=== PATIENT | male | born 1960 | race Caucasian/White ===

== ENCOUNTER → 2019-05-26 17:20 | Outpatient (BNVA) | payer OTHER, SELFPAY | PROVIDERS: Visit Provider Nurse Practitioner Family | DX: S67.21XA Crushing injury of right hand, initial encounter (principal); Y99.0 Civilian activity done for income or pay; S62.604A Fracture of unspecified phalanx of right ring finger, initial encounter for closed fracture | CPT/HCPCS: 73120; 73130 ==

== ENCOUNTER 2019-07-20 13:11 | Emergency (ER) | payer SELFPAY ==
--- NOTE | 2019-07-20 13:30 | XR_ITS ---
WS: [id number] XR chest 2V* 09920 REASON FOR EXAM: cough FINDINGS: PA lateral chest shows normal heart size and mediastinal interface. The lung hill are well aerated. There is no pneumonia, pleural effusion, pulmonary edema, no masses are seen. The hilum and apices normal. No osseous abnormalities. XR/XR chest 2V* 31524 IMPRESSION: Negative chest for acute findings.
[2019-07-20 13:32] VITALS: BP 215/134; PULSE 112; RESP 16; TEMP 37.8; O2SAT 96; BMI 27.3
[2019-07-20 15:15] VITALS: BP 220/111
[2019-07-20] MEDS: cloNIDine 0.1 mg Tablet PO (15:15)
[2019-07-20] MEDS: dexamethasone 10 mg/mL INJ IM (15:16)
--- NOTE | 2019-07-20 15:30 | W.ED.GENADLT ---
HPI - General Adult General: Chief complaint: General Medical Stated complaint: coughing/sinuses Time Seen by Provider: 07/20/19 15:07 Source: patient Mode of arrival: ambulatory Limitations: no limitations History of Present Illness: HPI narrative: Patient is a 58-year-old male states has had cough and congestion for the last week. He states that his cough has been productive and he has had low-grade fevers. He denies any [place] exposure or travel. States that he gets bronchitis often. Patient is also quite hypertensive and he states he has a long history of blood pressure but is never sees a primary care doctor and does not take any meds. Denies any headache or chest pain. He denies any shortness of breath. Onset (ago): week(s) Severity: moderate Relieving factors: none Exacerbating factors: none Associated symptoms: Deny chest pain, dyspnea, headache(s), nausea, rash or vomiting Review of Systems Const: Denies: fever, chills, body aches or change in appetite Eyes: Denies: blurry vision or eye discomfort ENMT: Denies: throat pain or dental pain Card: Denies: chest pain Resp: Reports: productive cough and wheezing; Denies: shortness of breath GI: Denies: abdominal pain, nausea, vomiting or diarrhea : Denies: painful urination Musc: Denies: neck pain or back pain Skin/Breast: Denies: rash Neuro: Denies: headache Psych: Denies: depression Cornelio/Lymph: Denies: easy bruising All/Imm: Denies: hives PFS ED PFSH: Social History Smoking and tobacco status: former smoker Alcohol intake: former Current occupation: [employer] Physical Exam Const: COMMON NORMALS: no apparent distress, oriented x3 and healthy appearing HENMT: COMMON NORMALS: normocephalic and head/scalp atraumatic HEAD & SCALP: normocephalic and atraumatic Eye: COMMON NORMALS: PERRL and EOMs intact bilaterally PUPIL: Yes PERRL Neck/C-Spine: COMMON NORMALS: full ROM and supple Chest: COMMONS NORMALS: inspection of chest normal and palpation of chest normal Resp: COMMON NORMALS: normal respiratory effort, no retractions, no use of accessory muscles and clear to auscultation bilaterally AUSCULTATION: clear to auscultation bilaterally Cardio: COMMON NORMALS: regular rate, regular rhythm and no murmurs RATE: regular rate RHYTHM: regular rhythm GI: COMMON NORMALS: normal to inspection, nondistended, normoactive bowel sounds, soft to palpation, non-tender and no masses PALPATION: Yes soft Extremity: COMMON NORMALS: normal to inspection and full ROM Neuro: COMMON NORMALS: oriented x3, moves all extremities and no focal motor deficits Psych: COMMON NORMALS: mental status grossly normal, thought process normal and cooperative THOUGHT PROCESS: normal thought process Skin: COMMON NORMALS: no rashes or lesions noted and no wounds GENERAL SKIN EXAM: no rashes or lesions noted Course Vital Signs: Vital signs: Vital Signs Temperature 99.4 F 07/20/19 16:37 Pulse Rate 102 H 07/20/19 16:37 Respiratory Rate 18 07/20/19 16:37 Blood Pressure 159/93 07/20/19 16:37 Pulse Oximetry 96 07/20/19 16:37 MDM - General Adult MDM Narrative: Medical decision making narrative: Patient presents with cough congestion and fever that is been going on the weeks. He has a long history of bronchitis and this feels similar. We will treat him with Keflex given a Decadron shot here. Also recommended that he has self isolation for 1 to 2 weeks. Patient also is hypertensive and this is likely chronic in nature and will start him on HCTZ at this time. Lab Data: Labs: Lab Results 07/20/19 Range/Units 15:47 Influenza Type A A g Negative (Negative) POC Influenza B Ag Negative (Negative) Imaging Data^: CXR: Radiologist's impression: [address] [address] XRay Report Signed Patient: Blayne Goldstein Unit #: [id number] : 1960 Age/Sex: 58 / M ADM Date: 07/20/19 Loc: ER Room/Bed: Attending Dr: Ordering Provider/Ordering MD: Jose Lira MD Date of Service: 07/20/19 Procedure(s): XR chest 2V* 10668 Accession Number(s): [id number] Report Number: [id number] WS: [id number] XR chest 2V* 03722 REASON FOR EXAM: cough FINDINGS: PA lateral chest shows normal heart size and mediastinal interface. The lung hill are well aerated. There is no pneumonia, pleural effusion, pulmonary edema, no masses are seen. The hilum and apices normal. No osseous abnormalities. XR/XR chest 2V* 00591 IMPRESSION: Negative chest for acute findings. Discharge Plan Discharge Patient Disposition: Home, Self-Care Clinical Impression: Bronchitis, Hypertension Condition: Stable Prescriptions: New Keflex 500 mg capsule 500 mg PO Q6H 7 Days Qty: 28 RF: 0 hydrochlorothiazide 25 mg tablet 25 mg PO BID Qty: 60 RF: 0 Discharge Orders: Discharge Order (Routine); Ordered 07/20/19 Ordered By: Jose Lira Referrals: , [Primary Care Provider] - Discharge Diet: Advance as tolerated Discharge Activity: Resume usual activity Patient Instructions: Acute Bronchitis (ED), Hypertension (ED) Coding Level of Care Code ED Planning Management It Specialist for Chg Fwd Exam Comprehensive
[2019-07-20] MEDS: acetaminophen 500 mg Tablet 1000 MG PO (15:50)
[2019-07-20 15:51] VITALS: BP 187/99
[2019-07-20 16:08] VITALS: BP 162/93
[2019-07-20 16:22] LABS: Influenza A by IFA Negative (Negative); Influenza B by IFA Negative (Negative)
[2019-07-20 16:37] VITALS: BP 159/93; PULSE 102; RESP 18; TEMP 37.4; O2SAT 96
== END 2019-07-20 16:38 | disposition home or self-care (01) ==
LOC: ER 08-11 11:50
PROVIDERS: Emergency Provider Emergency Medicine
DX: J40 Bronchitis, not specified as acute or chronic (principal); I10 Essential (primary) hypertension; Z87.891 Personal history of nicotine dependence
CPT/HCPCS: 12345; 71046; 87804; 96372; 99281; 99283; J1100

== ENCOUNTER → 2020-06-04 13:20 | Outpatient (BNVA) | payer OTHER, SELFPAY | PROVIDERS: Visit Provider Nurse Practitioner | DX: R06.02 Shortness of breath (principal); I10 Essential (primary) hypertension; R06.00 Dyspnea, unspecified | CPT/HCPCS: 80053; 83880 ==

== ENCOUNTER → 2024-09-21 13:38 | Outpatient (BNVA) | payer OTHER, SELFPAY | PROVIDERS: PCP Family Medicine; Visit Provider Podiatrist Foot & Ankle Surgery | DX: I73.9 Peripheral vascular disease, unspecified (principal); L60.3 Nail dystrophy; G62.9 Polyneuropathy, unspecified; M25.571 Pain in right ankle and joints of right foot; M25.572 Pain in left ankle and joints of left foot; E11.42 Type 2 diabetes mellitus with diabetic polyneuropathy | CPT/HCPCS: 11721; 99204 ==

== ENCOUNTER → 2024-09-29 14:33 | Outpatient (BNVA) | payer OTHER, SELFPAY | PROVIDERS: Visit Provider Student in an Organized Health Care Education/Training Program | DX: Z12.11 Encounter for screening for malignant neoplasm of colon (principal) | CPT/HCPCS: 99204 ==

== ENCOUNTER 2024-10-18 11:10 | Day surgery (SDC) | payer OTHER, SELFPAY ==
[2024-10-18 11:25] VITALS: BP 175/90; PULSE 63; RESP 18; TEMP 36.2; O2SAT 96; BMI 27.3
--- NOTE | 2024-10-18 11:25 | W.PM.OPSUD ---
Surgery/Procedure H&P Update DATE OF PROCEDURE: October 18, 2024 DATE H&P PERFORMED: 09/29/24 H&P UPDATE INFORMATION: I have reviewed H&P completed within last 30 days, I have examined patient prior to procedure and No changes to prior documentation PLANNED PROCEDURE: Operation Date: 10/18/24 12:30 Proposed Procedures p Colonoscopy 46162 G0121, Z12.11 R12(Not Applicable) - Ron Em MD
[2024-10-18] MEDS: sodium chloride 0.9% 1,000 ML 15 ML IV (11:29)
[2024-10-18 11:41] LABS: Glucose Point of Care 185 mg/dL (70-110)
--- NOTE | 2024-10-18 11:42 | ANES.PREANE2 ---
Pre-Anesthetic Assessment Height/Weight: Height 1.75 m Weight 83.915 kg Temp Pulse Resp BP Pulse Ox O2 Del Method 97.2 F L 63 18 175/90 96 Room Air 10/18/24 11:25 10/18/24 11:25 10/18/24 11:25 10/18/24 11:25 10/18/24 11:10/18/24 11:25 Preop Diagnosis: screening Operation Date: 10/18/24 12:30 Proposed Procedures p Colonoscopy 32161 G0121, Z12.11 R12(Not Applicable) - Ron Em MD Familial anesthetic complications: none Was Beta Kristie taken within 24 hours: N/A Was Clonidine taken within 24 hours: N/A Last intake: Intake Last Liquid Date 10/17/24 Last Liquid Time 21:00 Last Solid Date 10/16/24 Last Solid Time 15:30 Social No alcohol and No tobacco Exam alert, oriented x 3, clear to auscultation bilaterally and regular rate & rhythm Airway Submandibular: within normal limits Cervical ROM: within normal limits Mallampati: Class I Dentition: partials History/ROS No significant history except as noted Pulmonary None reported CV/HEM Hypertension None reported Hepatic None reported GI Gastroesophageal Reflux Disease Metabolic Diabetes Mellitus [facility] [place] None reported Neuropsych None reported Anesthetic Plan ASA status: 3 Anesthesia: Anesthesia Evaluation and MAC Risk of > 500 ml blood loss (7ml/kg in children): No Medications/Allergies Home Medications ?Medication ?Instructions ?Recorded ?Confirmed ?Last Taken ?Type hydrochlorothiazide 25 mg tablet 25 mg PO BID #60 tabs 06/04/20 10/13/24 10/16/24 Rx Diabetic Shoes 3 x insoles #1 ea 09/21/24 09/29/24 Unknown Rx bisacodyl 5 mg tablet,delayed 5 mg PO DAILY #4 tabs 09/29/24 10/13/24 10/16/24 Rx release (Dulcolax (bisacodyl)) glipizide 10 mg tablet 10 mg PO DAILY 09/29/24 10/13/24 10/16/24 History sitagliptin 50 mg tablet 50 mg PO DAILY 09/29/24 10/13/24 10/16/24 History magnesium citrate 592 ml PO BID constipation 1 day 10/10/24 10/13/24 10/13/24 Rx #592 mL aspirin 325 mg tablet 325 mg PO DAILY 10/13/24 10/13/24 10/09/24 History atorvastatin 40 mg tablet 20 mg PO BEDTIME 10/13/24 10/13/24 10/16/24 History lisinopril 40 mg tablet 20 mg PO DAILY 10/13/24 10/13/24 10/16/24 History loratadine 10 mg tablet 10 mg PO DAILY 10/13/24 10/13/24 10/16/24 History magnesium 250 mg tablet 250 mg PO DAILY 10/13/24 10/13/24 10/16/24 History omega-3s 720 mg-dha 300 mg-epa 360 2 cap PO DAILY 10/13/24 10/13/24 10/16/24 History mg-fish oil 1,200 mg capsule potassium 99 mg tablet 99 mg PO DAILY 10/13/24 10/13/24 10/16/24 History Allergies Allergy/AdvReac Type Severity Reaction Status Date / Time metformin Allergy ADR-Abdominal Verified 09/29/24 14:51 Pain Current Medications Generic Name Dose Route Start Last Admin Trade Name Freq PRN Reason Stop Dose Admin Sodium Chloride 1,000 mls @ 15 mls/hr 10/18/24 11:14 10/18/24 11:29 Sodium Chloride 0.9% IV 10/19/24 11:13 15 mls/hr .Q24H PRN Administration COLONOSCOPY FLUIDS PFSH Anesthesia Family History (Updated 09/29/24 @ 14:46 by DIOR Morrison) Mother Cancer lung then liver, bone Father Cancer skin Heart attack Social History (Updated 09/29/24 @ 14:52 by DIOR Morrison) Alcohol intake: former Substance/Drug Use: never Current occupation: [employer]
[2024-10-18 12:10] VITALS: BP 117/67; PULSE 54; RESP 18; TEMP 36.2; O2SAT 96
[2024-10-18 12:32] VITALS: BP 175/90; PULSE 58; RESP 17; O2SAT 96
--- NOTE | 2024-10-18 12:38 | ANE.PACU2 ---
Inpatient post-anesthesia follow up: Airway intact: Yes Vital signs: Temperature 97.2 F Pulse Rate 58 Respiratory Rate 17 Blood Pressure 175/90 Pulse Oximetry 96 Oxygen Delivery Me thod Room Air Oxygen Flow Rate Fraction of Inspir ed Oxygen Hydration adequate: Yes Nausea and vomiting: No Pain level: 1 Mental status: Baseline
== END 2024-10-18 12:38 | disposition home or self-care (01) ==
PROVIDERS: PCP Family Medicine; Visit Provider Student in an Organized Health Care Education/Training Program
PROC: 0DJD8ZZ Inspection of Lower Intestinal Tract, Via Natural or Artificial Opening Endoscopic (ICD-10-PCS; CPT 45378; principal; 2024-10-18 12:30)
DX: Z12.11 Encounter for screening for malignant neoplasm of colon (principal); K21.9 Gastro-esophageal reflux disease without esophagitis; I10 Essential (primary) hypertension; E11.9 Type 2 diabetes mellitus without complications; Z79.82 Long term (current) use of aspirin; Z79.899 Other long term (current) drug therapy; Z79.84 Long term (current) use of oral hypoglycemic drugs; Z88.8 Allergy status to other drugs, medicaments and biological substances
CPT/HCPCS: 36416; 45378; 82962; J2704; J7030

== ENCOUNTER 2024-11-01 12:18 | Day surgery (SDC) | payer OTHER, SELFPAY ==
[2024-11-01 12:29] VITALS: BP 161/85; PULSE 68; RESP 18; TEMP 36.1; O2SAT 97
--- NOTE | 2024-11-01 12:32 | ANES.PREANE2 ---
Pre-Anesthetic Assessment Height/Weight: Height 1.75 m Weight 83.915 kg Temp Pulse Resp BP Pulse Ox O2 Del Method 97 F L 68 18 161/85 97 Room Air 11/01/24 12:11/01/24 12:11/01/24 12:11/01/24 12:11/01/24 12:11/01/24 12:29 Operation Date: 11/01/24 13:45 Proposed Procedures p EGD with Biopsy 81421, R12(Not Applicable) - Ron Em MD Familial anesthetic complications: None Was Beta Kristie taken within 24 hours: N/A Was Clonidine taken within 24 hours: N/A Last intake: Intake Last Liquid Date 10/31/24 Last Liquid Time 19:00 Last Solid Date 10/31/24 Last Solid Time 18:00 Social No alcohol and No tobacco Exam alert, oriented x 3, clear to auscultation bilaterally and regular rate & rhythm Airway Submandibular: within normal limits Cervical ROM: within normal limits Mallampati: Class II Dentition: full Pulmonary None reported CV/HEM Hypertension and Peripheral Vascular Disease States he has been told his EKG was indicative of a old MA but he has not had one to his knowledge. METS >4 performs ADLS and works in yard without issue. None reported Hepatic None reported GI Gastroesophageal Reflux Disease Metabolic Diabetes Mellitus and Hyperlipidemia Musc/skel Lower Back Pain intermittent use of back brace per patient. Neuropsych None reported Anesthetic Plan ASA status: 2 Anesthesia: MAC Medications/Allergies Home Medications ?Medication ?Instructions ?Recorded ?Confirmed ?Last Taken ?Type hydrochlorothiazide 25 mg tablet 25 mg PO BID #60 tabs 06/04/20 11/01/24 11/01/24 Rx Diabetic Shoes 3 x insoles #1 ea 09/21/24 09/29/24 Unknown Rx glipizide 10 mg tablet 10 mg PO DAILY 09/29/24 11/01/24 10/30/24 History sitagliptin 50 mg tablet 50 mg PO DAILY 09/29/24 11/01/24 10/30/24 History aspirin 325 mg tablet 325 mg PO DAILY 10/13/24 11/01/24 10/25/24 History atorvastatin 40 mg tablet 20 mg PO BEDTIME 10/13/24 11/01/24 10/30/24 History lisinopril 40 mg tablet 20 mg PO DAILY 10/13/24 11/01/24 10/31/24 History loratadine 10 mg tablet 10 mg PO DAILY 10/13/24 11/01/24 10/31/24 History magnesium 250 mg tablet 250 mg PO DAILY 10/13/24 11/01/24 10/31/24 History omega-3s 720 mg-dha 300 mg-epa 360 2 cap PO DAILY 10/13/24 11/01/24 10/30/24 History mg-fish oil 1,200 mg capsule potassium 99 mg tablet 99 mg PO DAILY 10/13/24 11/01/24 10/31/24 History Allergies Allergy/AdvReac Type Severity Reaction Status Date / Time metformin Allergy ADR-Abdominal Verified 10/27/24 12:17 Pain PFSH Anesthesia Family History (Updated 09/29/24 @ 14:[address]) Mother Cancer lung then liver, bone Father Cancer skin Heart attack Social History (Updated 09/29/24 @ 14:[address]) Alcohol intake: former Substance/Drug Use: never Current occupation: [employer]
--- NOTE | 2024-11-01 12:56 | W.PM.OPSFHP ---
Same Day Surgery H&P Indication for Procedure/HPI DATE OF PROCEDURE: November 01, 2024 CHIEF COMPLAINT/INDICATIONFOR SURGICAL PROCEDURE: heartburn PREOP DIAGNOSIS: heartburn PLANNED PROCEDURE: Operation Date: 11/01/24 13:45 Proposed Procedures p EGD with Biopsy 86363, R12(Not Applicable) - Ron Em MD Medications/Allergies* Home Medications ?Medication ?Instructions ?Recorded ?Confirmed ?Type glipizide 10 mg tablet 10 mg PO DAILY 09/29/24 11/01/24 History sitagliptin 50 mg tablet 50 mg PO DAILY 09/29/24 11/01/24 History aspirin 325 mg tablet 325 mg PO DAILY 10/13/24 11/01/24 History atorvastatin 40 mg tablet 20 mg PO BEDTIME 10/13/24 11/01/24 History lisinopril 40 mg tablet 20 mg PO DAILY 10/13/24 11/01/24 History loratadine 10 mg tablet 10 mg PO DAILY 10/13/24 11/01/24 History magnesium 250 mg tablet 250 mg PO DAILY 10/13/24 11/01/24 History omega-3s 720 mg-dha 300 mg-epa 360 2 cap PO DAILY 10/13/24 11/01/24 History mg-fish oil 1,200 mg capsule potassium 99 mg tablet 99 mg PO DAILY 10/13/24 11/01/24 History Allergies/Adverse Reactions Allergy/AdvReac Type Severity Reaction Status Date / Time metformin Allergy ADR-Abdominal Verified 10/27/24 12:17 Pain Current Medications: Generic Name Dose Route Start Last Admin Trade Name Freq PRN Reason Stop Dose Admin Sodium Chloride 1,000 mls @ 15 mls/hr 11/01/24 12:20 11/01/24 12:34 Sodium Chloride 0.9% IV 11/02/24 12:19 15 mls/hr .Q24H PRN Administration COLONOSCOPY FLUIDS Pertinent History/Comorbid Conditions* Family History (Updated 09/29/24 @ 14:46 by DIOR Morrison) Heart attack Father Cancer Mother lung then liver, bone Father skin Social History Alcohol intake: former Substance/Drug Use: never Current occupation: [employer] Pertinent Exam Findings alert, oriented x 3, clear to auscultation bilaterally, regular rate & rhythm and procedure specific exam findings abdomen soft, nt, nd Recommendations Risks and benefits of procedure reviewed and Patient/family agree to proceed Surgery/Procedure today Other Plans: Proceed with EGD, possible biopsy Coding Level of Care Code Acute Code for Chg Fwd
[2024-11-01 13:11] VITALS: BP 158/86; PULSE 87; RESP 18; TEMP 36.2; O2SAT 96
[2024-11-01 13:29] VITALS: BP 136/85; PULSE 57; RESP 18; O2SAT 97
== END 2024-11-01 13:33 | disposition home or self-care (01) ==
PROVIDERS: PCP Family Medicine; Visit Provider Student in an Organized Health Care Education/Training Program
PROC: 0DJ08ZZ Inspection of Upper Intestinal Tract, Via Natural or Artificial Opening Endoscopic (ICD-10-PCS; principal; 2024-11-01 13:45)
DX: K29.50 Unspecified chronic gastritis without bleeding (principal); B96.81 Helicobacter pylori [H. pylori] as the cause of diseases classified elsewhere; E78.5 Hyperlipidemia, unspecified; I10 Essential (primary) hypertension; E11.51 Type 2 diabetes mellitus with diabetic peripheral angiopathy without gangrene; I25.2 Old myocardial infarction; K21.9 Gastro-esophageal reflux disease without esophagitis; Z79.899 Other long term (current) drug therapy; Z79.82 Long term (current) use of aspirin; Z79.84 Long term (current) use of oral hypoglycemic drugs; Z88.8 Allergy status to other drugs, medicaments and biological substances
CPT/HCPCS: 36416; 43239; 82962; 88305; J2704; J7030

== ENCOUNTER → 2024-11-17 09:37 | Outpatient (BNVA) | payer OTHER, SELFPAY | PROVIDERS: PCP Family Medicine; Visit Provider Student in an Organized Health Care Education/Training Program | DX: Z09 Encounter for follow-up examination after completed treatment for conditions other than malignant neoplasm (principal) | CPT/HCPCS: 99213 ==

== ENCOUNTER → 2024-12-14 13:17 | Outpatient (BNVA) | payer OTHER, SELFPAY | PROVIDERS: PCP Family Medicine; Visit Provider Podiatrist Foot & Ankle Surgery | DX: E11.42 Type 2 diabetes mellitus with diabetic polyneuropathy (principal); L60.3 Nail dystrophy; G62.9 Polyneuropathy, unspecified; I73.9 Peripheral vascular disease, unspecified; M25.571 Pain in right ankle and joints of right foot; M25.572 Pain in left ankle and joints of left foot | CPT/HCPCS: 11721 ==

== ENCOUNTER 2025-03-10 15:44 | Observation (INO) | payer OTHER, SELFPAY ==
[2025-03-10] VITALS (7 sets, daily range): BP systolic 114–194; BP diastolic 70–107; PULSE 90–116; RESP 16; TEMP 37; O2SAT 93–99; BMI 28.8
--- OUTSIDE RECORDS SUMMARY | 2025-03-10 15:50 | XMS_ITS | Clinical Summary ---
Author Organization [facility] Address [address] [place] [address] Phone Care Team Providers Care Machine Rough Rounder Name Role Phone Ajay Rosales MD Primary Care Provider Unavailab le Allergies No known active allergies Medications zolpidem (AMBIEN) 10 mg Oral Tab Take 1 Tab by mouth nightly as needed for Insomnia. 30 Tab 1 11/10/2008 Active oxycodone-aceta minophen (PERCOCET) 5-325 mg Oral Tab Take 1 Tab by mouth every 4 hours as needed for Pain. 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 Gender Identity Not on file Sexual Orientation Not on file Last Filed Vital Signs Vital Sign Reading Time Taken Comments Blood Pressure 138/92 12/19/2008 2:53 PM CDT Pulse 62 12/19/2008 2:53 PM CDT Temperature 36.6 C (97.9 F) 12/19/2008 2:22 PM CDT Respiratory Rate 14 12/19/2008 2:53 PM CDT Oxygen Saturation 97% 12/19/2008 2:53 PM CDT Inhaled Oxygen Concentration - - Weight 98.9 kg (218 lb) 12/19/2008 10:47 AM CDT Height 175.3 cm (5' 9 ) 12/14/2008 4:44 PM CDT Body Mass Index 32.19 12/14/2008 4:44 PM CDT Plan of Treatment Health Maintenance Due Date Last Done Comments DTAP/TDAP/TD VACCINES (1 - Tdap) 1980 COLORECTAL SCREENING 2006 Colorectal Cancer Screening 2006 FIT-DNA Q 3 years 2006 FIT/FOBT Q 1 year 2006 Flex Sig/CT Colonography Q 5 years 2006 ZOSTER VACCINE (1 of 2) 12/17/2011 INFLUENZA VACCINE (#1) 2024 RSV VACCINE (60+ or ) (1 - 1-dose 75+ series) 2036 Insurance [employer] [address] [place] [id number] Advance Directives For more information, please contact: [phone] * Full Code (Latest Code Status on File) Date Activated Date Inactivated Comments 12/19/2008 11:19 AM 12/20/2008 2:02 AM * Full Code Date Activated Date Inactivated Comments 12/19/2008 10:46 AM 12/19/2008 11:19 AM * Full Code Date Activated Date Inactivated Comments 10/26/2008 7:12 PM 10/27/2008 12:45 PM * Full Code Date Activated Date Inactivated Comments 10/26/2008 2:46 PM 10/26/2008 7:12 PM Care Teams Machine Rough Rounder Relationship Specialty Start Date End Date Ajay Rosales MD PCP - General 10/26/08
--- OUTSIDE RECORDS SUMMARY | 2025-03-10 15:50 | XMS_ITS | Clinical Summary ---
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 Family History Medical History Relation Name Comments Cancer Father Diabetes Father Cancer Mother Relation Name Status Comments Father Alive Mother Social History Tobacco Use Types Packs/Day Years Used Date Smoking Tobacco: Former Cigarettes Q uit: 03/29/1988 Alcohol Use Standard Drinks/Week Comments No 0 (1 standard drink = 0.6 oz pur e alcohol) Sex and Gender Information Value Date Recorded Sex Assigned at Not on file 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
--- NOTE | 2025-03-10 16:16 | W.ED.NAVMDI ---
Documented by User: RALPH Reilly 03/12/25 14:58 HPI - Nausea/Vomiting/Diarrhea General: Chief complaint: Nausea/Vomiting/Diarrhea Stated complaint: N/V/D Time Seen by Provider: 03/10/25 16:15 Source: patient Mode of arrival: wheelchair Limitations: no limitations History of Present Illness: Patient is a 64-year-old male with a history of diabetes (last A1c was around 9-down from 15)and hypertension here for complaints of nausea, vomiting, dizziness. Patient states he has been having similar episodes since 2004 and states normally he will have to wait them out but states previous episodes have never been this bad he states symptoms began yesterday evening. He is not complaining of abdominal pain or diarrhea. He has no headache. Blood pressure is significantly elevated at time of my initial examination-194/107. Patient states he did not take his blood pressure medications today. He reports dizziness is worse with movement. In the past, he states episodes have lasted about a day or so. He has been provided [place] maneuvers to do at home when symptoms start. MD elicited complaint: nausea, vomiting and other (dizziness) Onset (ago): year(s) (intermittent since 2004 ) Associated nausea: Yes Associated abdominal pain: No Location of pain: None Exacerbating factors: movement Relieving factors: other (lying still) Associated symtoms: Reports nausea; Denies change in vision, chest pain, dysuria, fatigue, headache(s), malaise, palpitations or syncope Related Data Home Medications ?Medication ?Instructions ?Recorded ?Confirmed glipizide 10 mg tablet 10 mg PO DAILY 09/29/24 03/10/25 sitagliptin 50 mg tablet 50 mg PO DAILY 09/29/24 03/10/25 aspirin 325 mg tablet 325 mg PO DAILY 10/13/24 03/10/25 atorvastatin 40 mg tablet 20 mg PO BEDTIME 10/13/24 03/10/25 loratadine 10 mg tablet 10 mg PO DAILY 10/13/24 03/10/25 magnesium 250 mg tablet 250 mg PO DAILY 10/13/24 03/10/25 omega-3s 720 mg-dha 300 mg-epa 360 2 cap PO DAILY 10/13/24 03/10/25 mg-fish oil 1,200 mg capsule polyethylene glycol 3350 17 17 g PO DAILY PRN Constipation 03/10/25 03/10/25 gram/dose oral powder (Miralax) potassium gluconate 595 mg (99 mg) 595 mg PO DAILY 03/10/25 03/10/25 tablet Previous Rx's ?Medication ?Instructions ?Recorded Diabetic Shoes 3 x insoles #1 ea 09/21/24 pantoprazole 40 mg tablet,delayed 40 mg PO BID 2 weeks #28 tabs 11/07/24 release amlodipine 10 mg tablet 10 mg PO DAILY #30 tabs 03/11/25 carvedilol 3.125 mg tablet (Coreg) 3.125 mg PO BID #60 tabs 03/11/25 lisinopril 40 mg tablet 40 mg PO DAILY #10 tabs 03/11/25 meclizine 25 mg tablet 50 mg (2 x 25 mg) PO TID 7 days 03/11/25 #42 tabs Allergies Allergy/AdvReac Type Severity Reaction Status Date / Time metformin Allergy ADR-Abdominal Verified 12/14/24 13:19 Pain Review of Systems Const: Denies: fever(s), chills, body aches, change in appetite, change in weight, fatigue or malaise Eyes: Denies: change in vision, blurry vision, photophobia, floaters or seeing flashes Card: Denies: chest pain, palpitations, irregular heart rhythm, lightheadedness, syncope or dyspnea on exertion Resp: Denies: dyspnea, productive cough or pain on inspiration GI: Reports: nausea and vomiting; Denies: abdominal pain, heartburn or diarrhea : Denies: difficulty urinating or dysuria Musc: Denies: neck pain, back pain or joint pain Skin/Breast: Denies: rash Neuro: Reports: vertigo; Denies: headache(s), numbness in extremities, weakness in extremities, sensory changes, lack of coordination, frequent falls, confusion, behavioral changes, Slurred speech present, difficulty communicating thoughts or seizure-like activity PFSH ED PFSH: Family History Mother Cancer lung then liver, bone Father Cancer skin Heart attack Social History Smoking and tobacco/nicotine status: former use of tobacco/nicotine Alcohol intake: former Substance/Drug Use: never Current occupation: [employer] Physical Exam Const: COMMON NORMALS: average body habitus, patient oriented x3, no limitations, alert and well nourished GENERAL APPEARANCE: cooperative ORIENTATION/CONSCIOUSNESS: Yes awake, Yes oriented to person, Yes oriented to place and Yes oriented to time HENMT: COMMON NORMALS: normocephalic, atraumatic, external ears normal, EAC's normal and TM's normal bilaterally HEAD & SCALP: normal to inspection, normocephalic and atraumatic FACE & SINUS: normal facial exam and face symmetric EXTERNAL EAR: Yes external ears normal EXTERNAL AUDITORY CANAL: EAC's normal TYMPANIC MEMBRANE: TM's normal bilaterally TEETH & GINGIVA: Yes poor dentition Eye: COMMON NORMALS: Equal, round and reactive pupils present and EOMs intact bilaterally GENERAL EYE: appearance normal, both eyes and all related structures and normal light reflex PUPIL: Yes Equal, round and reactive pupils present DIRECT OPHTHALMOSCOPY: Yes normal light reflex OTHER: unidirectional vertigo. absent skew Neck/C-Spine: COMMON NORMALS: full ROM, no lymphadenopathy, no meningeal signs, no JVD and No carotid bruits GENERAL: Yes normal visual inspection, No anterior neck swelling and No submandibular swelling Resp: COMMON NORMALS: normal respiratory effort and clear to auscultation bilaterally AUSCULTATION: clear to auscultation bilaterally Cardio: COMMON NORMALS: no JVD, regular rate and regular rhythm RATE: regular rate RHYTHM: regular rhythm Extremity: GENERAL: Yes normal exam except as noted Neuro: JOSE EDUARDO COMA SCALE: document GCS findings Jose Eduardo coma scale eye opening: Spontaneous Jose Eduardo coma scale verbal response: Orientated [place] coma scale motor response: Obey commands [place] coma scale total score: 15 COMMON NORMALS: patient oriented x3, CN's II-XII intact bilaterally, moves all extremities, no focal motor deficits and no sensory deficits noted SENSORIUM/ORIENTATION: Yes alert, Yes oriented to person, Yes oriented to place and Yes oriented to time MENINGEAL SIGNS: Yes no meningeal signs COORDINATION/BALANCE: [id number] test normal and yjtn-ya-[id number] test normal SPEECH: speech normal MOTOR EXAM: 5/5 motor strength present throughout COORDINATION: [id number]-[id number] test normal and [id number]-[id number] test normal OTHER: NIH 0 Skin: COMMON NORMALS: no rashes or lesions noted GENERAL SKIN EXAM: no rashes or lesions noted Course Vital Signs: Vital signs: Vital Signs Temperature 98.7 F 03/11/25 18:21 Pulse Rate 76 03/11/25 18:21 Respiratory Rate 15 03/11/25 18:21 Blood Pressure 169/84 03/11/25 18:21 Pulse Oximetry 94 03/11/25 18:21 Oxygen Delivery Me thod Room Air 03/11/25 16:15 MDM - Nausea/Vomiting/Diarrhea Medical Decision Making Patient is a nice 64-year-old male here for nausea, vomiting, dizziness starting yesterday. Patient states he has had intermittent episodes like this for many many years. He has been instructed for [place] maneuvers at home when he gets symptomatic but patient has not been doing these. He is not noncontrolled diabetic. His last A1c was 9-down from 15. He was hyperglycemic here with a blood sugar of 401. He does not seem to be in DKA. Serum ketones are negative. CBC was unremarkable. Chemistry did show minor elevations to his BUN/Cr 24/1.3. He was given IV fluids and insulin here for his hyperglycemia. Based on his history and exam here I would have a low suscipion for central etiology for his vertigo. We did attempt to ambulate him and he ended up getting extremely nauseous again and began vomiting. I am going to obtain CT imaging of his head and administer another liter of fluids in addition to 0.5mg of Ativan. He recently received Reglan and is no longer vomiting. Care being transferred to Dr. Donato as my shift is ending. ES Medical Records I reviewed the patient's medical records. Lab Data I reviewed the patient's lab results. 03/11/25 04:51 03/11/25 04:[address] 03/10/25 19:37 IMPRESSION: No acute intracranial abnormality. Head MRI 03/11/25 09:40 IMPRESSION: No acute infarct, intracranial bleed or intracranial mass. Laboratory Results WBC 8.14 10^3/uL (3.29-11.43) 03/10/25 16:49 RBC 5.06 10^6/uL (3.85-5.65) 03/10/25 16:49 Hgb 15.10 g/dL (11.27-16.99) 03/10/25 16:49 Hct 42.3 % (37-53) 03/10/25 16:49 MCV 83.6 fl (82-101) 03/10/25 16:49 MCH 29.8 pg (27-33) 03/10/25 16:49 MCHC 35.7 g/dL (30-55) 03/10/25 16:49 RDW 11.7 % (12.1-15.1) L 03/10/25 16:49 Plt Count 197 10^3/cmm (157-399) 03/10/25 16:49 MPV 10.1 fL (7.4-10.4) 03/10/25 16:49 Neut % (Auto) 82.2 % 03/10/25 16:49 Lymph % (Auto) 11.3 % 03/10/25 16:49 [place] % (Auto) 3.7 % 03/10/25 16:49 Eos % (Auto) 1.4 % 03/10/25 16:49 Baso % (Auto) 0.4 % 03/10/25 16:49 Neut # (Auto) 6.70 10^3/uL (1.8-7.7) 03/10/25 16:49 Lymph # (Auto) 0.9 10^3/uL (0.8-4.8) 03/10/25 16:49 [place] # (Auto) 0.3 10^3/uL (0.2-0.9) 03/10/25 16:49 Eos # (Auto) 0.1 10^3/uL (0.0-0.8) 03/10/25 16:49 Baso # (Auto) 0.0 10^3/uL (0.0-0.1) 03/10/25 16:49 Nucleated RBC % (auto) 0 % 03/10/25 16:49 Nucleated RBCs # 0.0 /100WBC 03/10/25 16:49 Sodium 131 mmol/L (136-145) L 03/10/25 16:49 Potassium 4.2 mmol/L (3.5-5.1) 03/10/25 16:49 Chloride 94 mmol/L (98-107) L 03/10/25 16:49 Carbon Dioxide 22 mmol/L (22-29) 03/10/25 16:49 Anion Gap 19.2 (5-19) H 03/10/25 16:49 BUN 24 mg/dL (8-23) H 03/10/25 16:49 Creatinine 1.3 mg/dL (0.7-1.2) H 03/10/25 16:49 GFR Calculation 55.8 mL/min (90-130) L 03/10/25 16:49 Glucose 401 mg/dL (65-115) H 03/10/25 16:49 POC Glucose 322 mg/dL (70-110) H 03/10/25 20:02 Estimat Average Glucose 255 03/10/25 16:49 Hemoglobin A1c 10.5 % (4.0-6.0) H 03/10/25 16:49 Calculated Osmolality 293 mOsm/kg (285-295) 03/10/25 16:49 Calcium 9.4 mg/dL (8.5-10.5) 03/10/25 16:49 Phosphorus 3.3 mg/dL (2.5-4.5) 03/10/25 16:49 Magnesium 2.0 mg/dL (1.7-2.3) 03/10/25 16:49 Total Bilirubin 0.8 mg/dL (0.15-1.2) 03/10/25 16:49 AST 21 U/L (0-40) 03/10/25 16:49 ALT 35 U/L (0-41) 03/10/25 16:49 Alkaline Phosphatase 89 U/L (40-130) 03/10/25 16:49 Total Protein 8.0 g/dL (6.6-8.7) 03/10/25 16:49 Albumin 4.5 g/dL (3.5-5.2) 03/10/25 16:49 Globulin 3.5 g/dL (1.3-4.6) 03/10/25 16:49 Lipase 35 U/L (13-60) 03/10/25 16:49 TSH 0.90 uIU/mL (0.27-4.20) 03/10/25 16:49 Urine Color Yellow (Yellow) 03/10/25 18:49 Urine Appearance Clear (CLEAR) 03/10/25 18:49 Urine pH 7.0 (5-7) 03/10/25 18:49 Ur Specific [place] 1.029 (1.005-1.030) 03/10/25 18:49 Urine Protein 1+ (Negative) A 03/10/25 18:49 Urine Glucose (UA) 3+ (Normal) H 03/10/25 18:49 Urine Ketones 1+ (Negative) H 03/10/25 18:49 Urine Blood Negative (Negative) 03/10/25 18:49 Urine Nitrate Negative (Negative) 03/10/25 18:49 Urine Bilirubin Negative (Negative) 03/10/25 18:49 Urine Urobilinogen 0.2 mg/dL (Negative) 03/10/25 18:49 Ur Leukocyte Esterase Negative (Negative) 03/10/25 18:49 Urine RBC 0-2 /hpf (0-2) 03/10/25 18:49 Urine WBC 0-5 /hpf (0-5) 03/10/25 18:49 Ur Squamous Epith Cells 0-5 /hpf (0-5) 03/10/25 18:49 Amorphous Sediment Not Reportable 03/10/25 18:49 Urine Bacteria None seen /hpf (NONE) 03/10/25 18:49 Hyaline Casts 0-4 /lpf H 03/10/25 18:49 Serum Ketones Negative (Negative) 03/10/25 16:49 Discharge Plan Discharge Patient Disposition: Placed in Observation Admit Provider: Karie Fields Clinical Impression: Hyperglycemia, Episodic peripheral vertigo Hypertension Qualifiers: Hypertension type: unspecified Qualified Code(s): I10 - Essential (primary) hypertension 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 [employer] Documented by User: Emery Donato DO 03/10/25 22:02 HPI - Nausea/Vomiting/Diarrhea General: Chief complaint: Nausea/Vomiting/Diarrhea Stated complaint: N/V/D Time Seen by Provider: 03/10/25 16:15 Related Data Home Medications ?Medication ?Instructions ?Recorded ?Confirmed glipizide 10 mg tablet 10 mg PO DAILY 09/29/24 03/10/25 sitagliptin 50 mg tablet 50 mg PO DAILY 09/29/24 03/10/25 aspirin 325 mg tablet 325 mg PO DAILY 10/13/24 03/10/25 atorvastatin 40 mg tablet 20 mg PO BEDTIME 10/13/24 03/10/25 loratadine 10 mg tablet 10 mg PO DAILY 10/13/24 03/10/25 magnesium 250 mg tablet 250 mg PO DAILY 10/13/24 03/10/25 omega-3s 720 mg-dha 300 mg-epa 360 2 cap PO DAILY 10/13/24 03/10/25 mg-fish oil 1,200 mg capsule polyethylene glycol 3350 17 17 g PO DAILY PRN Constipation 03/10/25 03/10/25 gram/dose oral powder (Miralax) potassium gluconate 595 mg (99 mg) 595 mg PO DAILY 03/10/25 03/10/25 tablet Previous Rx's ?Medication ?Instructions ?Recorded Diabetic Shoes 3 x insoles #1 ea 09/21/24 pantoprazole 40 mg tablet,delayed 40 mg PO BID 2 weeks #28 tabs 11/07/24 release amlodipine 10 mg tablet 10 mg PO DAILY #30 tabs 03/11/25 carvedilol 3.125 mg tablet (Coreg) 3.125 mg PO BID #60 tabs 03/11/25 lisinopril 40 mg tablet 40 mg PO DAILY #10 tabs 03/11/25 meclizine 25 mg tablet 50 mg (2 x 25 mg) PO TID 7 days 03/11/25 #42 tabs Allergies Allergy/AdvReac Type Severity Reaction Status Date / Time metformin Allergy ADR-Abdominal Verified 12/14/24 13:19 Pain PFSH ED PFSH: Family History Mother Cancer lung then liver, bone Father Cancer skin Heart attack Social History Smoking and tobacco/nicotine status: former use of tobacco/nicotine Alcohol intake: former Substance/Drug Use: never Current occupation: [employer] Physical Exam Neuro: JOSE EDUARDO COMA SCALE: document GCS findings [place] coma scale total score: 15 Course Vital Signs: Vital signs: Vital Signs Temperature 98.7 F 03/11/25 18:21 Pulse Rate 76 03/11/25 18:21 Respiratory Rate 15 03/11/25 18:21 Blood Pressure 169/84 03/11/25 18:21 Pulse Oximetry 94 03/11/25 18:21 Oxygen Delivery Me thod Room Air 03/11/25 16:15 MDM - Nausea/Vomiting/Diarrhea Medical Decision Making Patient is a nice 64-year-old male here for nausea, vomiting, dizziness starting yesterday. Patient states he has had intermittent episodes like this for many many years. He has been instructed for [place] maneuvers at home when he gets symptomatic but patient has not been doing these. He is not noncontrolled diabetic. His last A1c was 9-down from 15. He was hyperglycemic here with a blood sugar of 401. He does not seem to be in DKA. Serum ketones are negative. CBC was unremarkable. Chemistry did show minor elevations to his BUN/Cr 24/1.3. He was given IV fluids and insulin here for his hyperglycemia. Based on his history and exam here I would have a low suscipion for central etiology for his vertigo. We did attempt to ambulate him and he ended up getting extremely nauseous again and began vomiting. I am going to obtain CT imaging of his head and administer another liter of fluids in addition to 0.5mg of Ativan. He recently received Reglan and is no longer vomiting. Care being transferred to Dr. Donato as my shift is ending. ES 64-year-old patient turned over to me at shift change. Patient has received another liter of fluid, Ativan. His nausea is better, but he still cannot walk on his own. The patient was home alone. He is at significant fall risk at this point. He will be observed. Hospitalist will see the patient in the ER. He agrees to observe. Lab Data 03/11/25 04:51 03/11/25 04:[address] 03/10/25 19:37 IMPRESSION: No acute intracranial abnormality. Head MRI 03/11/25 09:40 IMPRESSION: No acute infarct, intracranial bleed or intracranial mass. Laboratory Results WBC 8.14 10^3/uL (3.29-11.43) 03/10/25 16:49 RBC 5.06 10^6/uL (3.85-5.65) 03/10/25 16:49 Hgb 15.10 g/dL (11.27-16.99) 03/10/25 16:49 Hct 42.3 % (37-53) 03/10/25 16:49 MCV 83.6 fl (82-101) 03/10/25 16:49 MCH 29.8 pg (27-33) 03/10/25 16:49 MCHC 35.7 g/dL (30-55) 03/10/25 16:49 RDW 11.7 % (12.1-15.1) L 03/10/25 16:49 Plt Count 197 10^3/cmm (157-399) 03/10/25 16:49 MPV 10.1 fL (7.4-10.4) 03/10/25 16:49 Neut % (Auto) 82.2 % 03/10/25 16:49 Lymph % (Auto) 11.3 % 03/10/25 16:49 [place] % (Auto) 3.7 % 03/10/25 16:49 Eos % (Auto) 1.4 % 03/10/25 16:49 Baso % (Auto) 0.4 % 03/10/25 16:49 Neut # (Auto) 6.70 10^3/uL (1.8-7.7) 03/10/25 16:49 Lymph # (Auto) 0.9 10^3/uL (0.8-4.8) 03/10/25 16:49 [place] # (Auto) 0.3 10^3/uL (0.2-0.9) 03/10/25 16:49 Eos # (Auto) 0.1 10^3/uL (0.0-0.8) 03/10/25 16:49 Baso # (Auto) 0.0 10^3/uL (0.0-0.1) 03/10/25 16:49 Nucleated RBC % (auto) 0 % 03/10/25 16:49 Nucleated RBCs # 0.0 /100WBC 03/10/25 16:49 Sodium 131 mmol/L (136-145) L 03/10/25 16:49 Potassium 4.2 mmol/L (3.5-5.1) 03/10/25 16:49 Chloride 94 mmol/L (98-107) L 03/10/25 16:49 Carbon Dioxide 22 mmol/L (22-29) 03/10/25 16:49 Anion Gap 19.2 (5-19) H 03/10/25 16:49 BUN 24 mg/dL (8-23) H 03/10/25 16:49 Creatinine 1.3 mg/dL (0.7-1.2) H 03/10/25 16:49 GFR Calculation 55.8 mL/min (90-130) L 03/10/25 16:49 Glucose 401 mg/dL (65-115) H 03/10/25 16:49 POC Glucose 322 mg/dL (70-110) H 03/10/25 20:02 Estimat Average Glucose 255 03/10/25 16:49 Hemoglobin A1c 10.5 % (4.0-6.0) H 03/10/25 16:49 Calculated Osmolality 293 mOsm/kg (285-295) 03/10/25 16:49 Calcium 9.4 mg/dL (8.5-10.5) 03/10/25 16:49 Phosphorus 3.3 mg/dL (2.5-4.5) 03/10/25 16:49 Magnesium 2.0 mg/dL (1.7-2.3) 03/10/25 16:49 Total Bilirubin 0.8 mg/dL (0.15-1.2) 03/10/25 16:49 AST 21 U/L (0-40) 03/10/25 16:49 ALT 35 U/L (0-41) 03/10/25 16:49 Alkaline Phosphatase 89 U/L (40-130) 03/10/25 16:49 Total Protein 8.0 g/dL (6.6-8.7) 03/10/25 16:49 Albumin 4.5 g/dL (3.5-5.2) 03/10/25 16:49 Globulin 3.5 g/dL (1.3-4.6) 03/10/25 16:49 Lipase 35 U/L (13-60) 03/10/25 16:49 TSH 0.90 uIU/mL (0.27-4.20) 03/10/25 16:49 Urine Color Yellow (Yellow) 03/10/25 18:49 Urine Appearance Clear (CLEAR) 03/10/25 18:49 Urine pH 7.0 (5-7) 03/10/25 18:49 Ur Specific [place] 1.029 (1.005-1.030) 03/10/25 18:49 Urine Protein 1+ (Negative) A 03/10/25 18:49 Urine Glucose (UA) 3+ (Normal) H 03/10/25 18:49 Urine Ketones 1+ (Negative) H 03/10/25 18:49 Urine Blood Negative (Negative) 03/10/25 18:49 Urine Nitrate Negative (Negative) 03/10/25 18:49 Urine Bilirubin Negative (Negative) 03/10/25 18:49 Urine Urobilinogen 0.2 mg/dL (Negative) 03/10/25 18:49 Ur Leukocyte Esterase Negative (Negative) 03/10/25 18:49 Urine RBC 0-2 /hpf (0-2) 03/10/25 18:49 Urine WBC 0-5 /hpf (0-5) 03/10/25 18:49 Ur Squamous Epith Cells 0-5 /hpf (0-5) 03/10/25 18:49 Amorphous Sediment Not Reportable 03/10/25 18:49 Urine Bacteria None seen /hpf (NONE) 03/10/25 18:49 Hyaline Casts 0-4 /lpf H 03/10/25 18:49 Serum Ketones Negative (Negative) 03/10/25 16:49 All radiology interpretation(s) finalized by discharge Discharge Plan Discharge Patient Disposition: Placed in Observation Admit Provider: Karie Fields Clinical Impression: Hyperglycemia, Episodic peripheral vertigo Hypertension Qualifiers: Hypertension type: unspecified Qualified Code(s): I10 - Essential (primary) hypertension 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
[2025-03-10] MEDS: ondansetron 2 mg/ML SDV 2 mL 4 MG IVP (16:46)
[2025-03-10] MEDS: hyDRALAzine 20 mg/mL INJ 1 mL 10 MG IVP (16:47)
[2025-03-10 17:04] LABS: Hematocrit 42.3 % (37-53); Hemoglobin 15.10 g/dL (11.27-16.99); Mean Corpuscular HGB Conc 35.7 g/dL (30-55); Mean Corpuscular Hemoglobin 29.8 pg (27-33); Mean Corpuscular Volume 83.6 fl (82-101); Nucleated Red Blood Cells % 0 %; Platelet Count 197 10^3/cmm (157-399); Red Blood Count 5.06 10^6/uL (3.85-5.65); White Blood Count 8.14 10^3/uL (3.29-11.43)
[2025-03-10 17:21] LABS: Alanine Aminotransferase 35 U/L (0-41); Albumin Level 4.5 g/dL (3.5-5.2); Alkaline Phosphatase 89 U/L (40-130); Anion Gap 19.2 (5-19); Aspartate Amino Transferase 21 U/L (0-40); Blood Urea Nitrogen 24 mg/dL (8-23); Calcium 9.4 mg/dL (8.5-10.5); Carbon Dioxide 22 mmol/L (22-29); Chloride 94 mmol/L (98-107); Creatinine Clr Calc Pharmacy 64.0025; Globulin 3.5 g/dL (1.3-4.6); Glucose 401 mg/dL (65-115); Lipase 35 U/L (13-60); Osmolality Calculated 293 mOsm/kg (285-295); Potassium 4.2 mmol/L (3.5-5.1); Sodium 131 mmol/L (136-145); Total Protein 8.0 g/dL (6.6-8.7)
--- NOTE | 2025-03-10 17:42 | ECG_ITS ---
[facility]: [facility]10 Pat Name: Blayne Goldstein Department: Room: Gender: Male Robotic [employer] T[employer] Production: : 1960 Requested By: Sarah Hadley Order Number: [id number] Baljit MD: Adriana Ruiz M.D. Measurements Intervals [place] Rate: 102 P: 69 AL: 207 QRS: 4 QRSD: 85 T: 33 QT: 367 QTc: 479 Interpretive Statements SINUS TACHYCARDIA WITH OCCASIONAL SUPRAVENTRICULAR PREMATURE COMPLEXES ABNORMAL RHYTHM ECG No previous ECG available for comparison Electronically Signed On 03-11-2025 13:05:01 [employer] DRIVER by Adriana Ruiz M.D. [email or web address]
[2025-03-10 18:06] LABS: Ketone (Acetest) Serum Negative (Negative)
[2025-03-10] MEDS: insulin regular-human 100 units/1 mL 10 UNIT IVP (18:48)
[2025-03-10 19:04] LABS: Glucose Urine UA 3+ (Normal); Nitrate Urine Negative (Negative); Specific Gravity, Urine 1.029 (1.005-1.030)
[2025-03-10 19:09] LABS: Add Urine Microscopic? YES
[2025-03-10] MEDS: metoclopramide 5 mg/mL SDV 2 mL 10 MG IVP (19:16)
[2025-03-10] MEDS: LORazepam 2 mg/mL INJ 1 mL 0.5 MG IVP (19:34)
--- NOTE | 2025-03-10 19:37 | CTR_ITS ---
PROCEDURE INFORMATION: Exam: CT Head Without Contrast Exam date and time: 03/10/2025 7:55 PM Age: 64 years old Clinical indication: Dizziness with n/v. History of vertigo. ; Additional info: N/v/dizziness TECHNIQUE: Imaging protocol: Computed tomography of the head without contrast. Radiation optimization: All CT scans at this facility use at least one of these dose optimization techniques: automated exposure control; mA and/or kV adjustment per patient size (includes targeted exams where dose is matched to clinical indication); or iterative reconstruction. COMPARISON: No relevant prior studies available. RADIATION DOSE METRICS: Total DLP (mGy-cm): 1064.45 FINDINGS: Brain: Parenchymal volume loss with scattered white matter hyperintensities consistent with chronic microvascular ischemic changes. No acute intracranial hemorrhage, mass effect or midline shift. Cerebral ventricles: No ventriculomegaly. Paranasal sinuses: Visualized sinuses are unremarkable. No fluid levels. Mastoid air cells: Visualized mastoid air cells are well aerated. Bones: Unremarkable. No acute fracture. Soft tissues: Unremarkable. CT/CT head wo con* 12111 IMPRESSION: No acute intracranial abnormality.
[2025-03-10 23:08] LABS: Magnesium 2.0 mg/dL (1.7-2.3); Thyroid Stimulating Hormone 0.90 uIU/mL (0.27-4.20)
[2025-03-10] MEDS: heparin 5,000 unit/mL INJ 1 mL 5000 UNIT SUBCUT (23:33)
[2025-03-11] VITALS (8 sets, daily range): BP systolic 109–169; BP diastolic 67–96; PULSE 76–102; RESP 15–20; TEMP 36.5–37.1; O2SAT 94–97
--- NOTE | 2025-03-11 00:13 | PM.HP ---
Providers/Chief Complaint Admitting Physician: Karie Fields MD Primary Care Provider: Tierney Barcenas MD Chief Complaint: N/V/D History of Present Illness As per the previous retrospective notes and the patient Blayne Goldstein is a 64 year old male With past medical history of hypertension, diabetes with diabetic complications including neuropathy, diabetic retinopathy with early stages of cataract development came due to sensation of spinning of the room vertigo from the last 1 day with 1 episode of nausea and vomiting today.. The patient did not complain of any fever, recent sore throats, or any earaches or ear discharges. There was no history of chest pain, chest pressure, abdominal pain or any diarrhea or change in his urinary habits. He did not had any episodes of syncope or presyncope in the past. He used to have such vertigo episodes in the past as well. He further reported that he has diabetic neuropathy and whenever he stands he feels some diaphoresis which could be related to dysautonomia? No history of orthopnea or PND. The patient did not report any past medical history of coronary disease or stroke however he is on regular aspirin 325 daily which I am not sure of the reason as from retrospective notes and could be peripheral artery disease ? No history of recent sick contacts or travels Rest of the review of system is unremarkable Review of Systems General: Reports: 10 or more systems reviewed and unremarkable except in HPI and below Medications/Allergies Home Medications ?Medication ?Instructions ?Recorded ?Confirmed ?Last Taken ?Type hydrochlorothiazide 25 mg tablet 25 mg PO BID #60 tabs 06/04/20 03/10/25 03/09/25 Rx Diabetic Shoes 3 x insoles #1 ea 09/21/24 03/10/25 Unknown Rx glipizide 10 mg tablet 10 mg PO DAILY 09/29/24 03/10/25 03/09/25 History sitagliptin 50 mg tablet 50 mg PO DAILY 09/29/24 03/10/25 03/09/25 History aspirin 325 mg tablet 325 mg PO DAILY 10/13/24 03/10/25 03/09/25 History atorvastatin 40 mg tablet 20 mg PO BEDTIME 10/13/24 03/10/25 03/09/25 History lisinopril 40 mg tablet 20 mg PO DAILY 10/13/24 03/10/25 03/09/25 History loratadine 10 mg tablet 10 mg PO DAILY 10/13/24 03/10/25 03/09/25 History magnesium 250 mg tablet 250 mg PO DAILY 10/13/24 03/10/25 03/09/25 History omega-3s 720 mg-dha 300 mg-epa 360 2 cap PO DAILY 10/13/24 03/10/25 03/09/25 History mg-fish oil 1,200 mg capsule pantoprazole 40 mg tablet,delayed 40 mg PO BID 2 weeks #28 tabs 11/07/24 03/10/25 Unknown Rx release polyethylene glycol 3350 17 17 g PO DAILY PRN Constipation 03/10/25 03/10/25 Unknown History gram/dose oral powder (Miralax) potassium gluconate 595 mg (99 mg) 595 mg PO DAILY 03/10/25 03/10/25 03/09/25 History tablet Allergies Allergy/AdvReac Type Severity Reaction Status Date / Time metformin Allergy ADR-Abdominal Verified 12/14/24 13:19 Pain PFSH Acute PFSH: Family History Mother Cancer lung then liver, bone Father Cancer skin Heart attack Social History Smoking and tobacco/nicotine status: former use of tobacco/nicotine Alcohol intake: former Substance/Drug Use: never Current occupation: [employer] Vitals/I&O/Wt Last Vital Signs Temp 98.6 F 03/10/25 16:01 Pulse 99 03/10/25 22:37 Resp 16 03/10/25 16:01 BP 159/96 03/10/25 22:37 Pulse Ox 93 03/10/25 22:37 O2 Del Method Room Air 03/10/25 22:36 03/10/25 03/10/25 03/11/25 14:59 22:59 06:59 Intake Total 999 / 999 999 / 1999 Balance 999 / 999 1000 / 1999 Weight last 48 hrs Weight 88.451 kg Physical Exam Narrative: General: Alert and oriented, lying comfortably without any distress HEENT: Normocephalic, atraumatic, grossly unremarkable exam Cardio: normal rate rhythm, normal S1-S2 without any murmurs, Respiratory: normal vascular breathing on auscultation without any wheezes, stridor, rhonchi GI: Abdomen soft, nontender, nondistended, normoactive bowel sounds present all 4 quadrants, Neuro: intact cranial nerves motor and sensory and cerebellar/coordination function without any focal neurological deficit Behavior: Appropriate and cooperative Extremities: Adequate palpable pulses, some chronic skin changes at shins could be related to diabetic lipoid sclerosis? Data 03/10/25 16:49 03/10/25 16:49 A&P Assessment and plan 1. Episodic peripheral vertigo: Patient hints exam was unremarkable, no signs of cerebellar dysfunction and no nystagmus on clinical examination Possible BPPV OT PT for managing BPPV Telemetry monitoring If the patient has worsening nystagmus or vertigo then consider MRI brain since CT head is negative Continue neurochecks every shift Monitor hemodynamics 2. Hyponatremia: Patient having mild hyponatremia which could be related to translocation secondary to hyperglycemia, calculated osmolality normal. Corrected sodium is still low, normal saline hydration and to follow in the morning since the patient had also today nausea and vomiting and could be related to dehydration? 3. Hypertension: Patient blood pressure in the 50s At home patient taking hydrochlorothiazide 25 mg twice daily, lisinopril 20 mg daily To resume after reconciliation 4. PAD (peripheral artery disease): Patient on high dose of aspirin 325 mg daily and atorvastatin 20 mg To continue after reconciliation 5. Peripheral neuropathy: Patient need adequate diabetes control And to follow-up as outpatient for further management 6. Type 2 diabetes mellitus: Insulin sliding scale as inpatient medium dose 7. CKD (chronic kidney disease): Patient might have CKD since the last value was in 2020 which was normal Patient having proteinuria Continue to monitor renal functions with intake and output monitoring Monitoring of electrolytes with correction accordingly Plan: VTE: Heparin twice daily Diet: Cardiac diet PDMP PDMP Reviewed: Not Reviewed Attestations Medical Necessity Statement*: Patient will stay overnight for management of his BPPV with occupational and physical therapy and continuation of management of his comorbidities as inpatient Time Spent in Patient Care: 16 - 35 minutes (>than 50% of time spent in counselling and/or direct pt care on unit). Other Attestations: Patient condition has been discussed at length with the patient/family, I have independently reviewed the chart labs imaging/diagnostics/EKG. the goals of care and code status with the patient/family/NOK/legal promotions representative, and documented accordingly. The management has been done according to the current clinical condition with respect to patient goals of care and based on recommendations/guidelines. The patient/family has been informed about the current condition and further plan of care. Agreed with the plan of care and understood without any language barrier. Every effort was made to ensure accuracy of shipping lead person. Any obvious errors or omissions should be clarified with the author of the document. Coding Level of Care Code Acute Code for Chg Fwd Diagnoses Episodic peripheral vertigo H81.399 Hyponatremia E87.1 Hypertension I10 PAD (peripheral artery disease) I73.9 Peripheral neuropathy G62.9 Type 2 diabetes mellitus E11.9 CKD (chronic kidney disease) N18.9
[2025-03-11 01:16] LABS: Estmated Average Glucose 255; Hemoglobin A1C 10.5 % (4.0-6.0)
[2025-03-11] MEDS: insulin glargine 100 units/1 mL 6 UNIT SUBCUT (02:13)
[2025-03-11 05:02] LABS: Hematocrit 35.3 % (37-53); Hemoglobin 12.50 g/dL (11.27-16.99); Mean Corpuscular HGB Conc 35.4 g/dL (30-55); Mean Corpuscular Hemoglobin 29.9 pg (27-33); Mean Corpuscular Volume 84.4 fl (82-101); Nucleated Red Blood Cells % 0 %; Platelet Count 193 10^3/cmm (157-399); Red Blood Count 4.18 10^6/uL (3.85-5.65); White Blood Count 8.63 10^3/uL (3.29-11.43)
[2025-03-11 05:28] LABS: Alanine Aminotransferase 24 U/L (0-41); Albumin Level 3.6 g/dL (3.5-5.2); Alkaline Phosphatase 59 U/L (40-130); Anion Gap 14.8 (5-19); Aspartate Amino Transferase 15 U/L (0-40); Blood Urea Nitrogen 23 mg/dL (8-23); Calcium 8.3 mg/dL (8.5-10.5); Carbon Dioxide 22 mmol/L (22-29); Chloride 104 mmol/L (98-107); Creatinine Clr Calc Pharmacy 58.9872; Globulin 2.5 g/dL (1.3-4.6); Glucose 209 mg/dL (65-115); Osmolality Calculated 294 mOsm/kg (285-295); Potassium 3.8 mmol/L (3.5-5.1); Sodium 137 mmol/L (136-145); Total Protein 6.1 g/dL (6.6-8.7)
--- NOTE | 2025-03-11 09:40 | MRR_ITS ---
PROCEDURE INFORMATION: Exam: MR Head Without Contrast Exam date and time: 03/11/2025 1:37 PM Age: 64 years old Clinical indication: Dizziness; Additional info: Post circulation stroke, vertigo. N/v TECHNIQUE: Imaging protocol: Magnetic resonance imaging of the head without contrast. COMPARISON: CT head wo con* [id number] 03/10/2025 7:55 PM FINDINGS: Brain: Bilateral periventricular white matter and centrum semiovale foci of high FLAIR signal, consistent with chronic ischemic small vessel disease. No acute infarct, intracranial bleed or intracranial mass. Old micro bleed in the right basal ganglia. Cerebral ventricles: Normal. No ventriculomegaly. Bones: Unremarkable. Paranasal sinuses: Mild mucosal disease of bilateral maxillary sinuses. Mastoid air cells: Normal as visualized. No mastoid effusion. Orbital cavities: Unremarkable. Soft tissues: Unremarkable. MR/MR head wo con* [id number] IMPRESSION: No acute infarct, intracranial bleed or intracranial mass.
[2025-03-11 09:58] LABS: Iron 53 ug/dL (59-158); Total Iron Binding Capacity 223 mcg/dl; Unsaturated Iron Binding 170 ug/dL (112-347)
[2025-03-11 10:15] LABS: Vitamin B12 872 pg/mL (232-1245)
[2025-03-11] MEDS: heparin 5,000 unit/mL INJ 1 mL 5000 UNIT SUBCUT (10:39)
--- NOTE | 2025-03-11 10:44 | PC.CHAP ---
Pastoral Care Encounter/Spiritual Assessment Type of Contact [] Declined filament welder visit [] Patient/Family/Request visit [] Outpatient visit [] Follow-up visit [] Physician referral [] Code/Alert [x] Routine visit [] Staff referral [] Actively dying [] Patient sleeping [] Family support [] [] Out of room [] Palliative care [] [] Receiving care in room [] Pre-surgical visit [] Trauma [] Long length of stay [] ICU visit [] Other: Relational/Emotional Strength [x] Patient feels connected with others/family/visitors/staff [] Distress [] Loneliness/isolation [] Abandonment Spirituality of Patient [x] Person of [place] [x] Attends [facility] of their [place] [x] Believes in Prayer [] Reads Bible or Shinto materials [] There are Spiritual issues to be addressed Ripening Room Hand Interventions [x] Prayer [x] Active listening [] Non-anxious presence [] Spiritual/emotional support [] Crisis/trauma care [] Spiritual counseling [] Bereavement support [] Provided bereavement packet [] Provided Bible/devotional materials [] Provided toy/stuffed animal, coloring book to patient or family member [] Provided Communion [] Anointing/[place] [] Salvation [] Completed spiritual assessment [] Other: Impact on Illness or Injury [] Angry [] Fearful [] Anxious [] Often cries [] Exhaustion [] Unable to work [] Unable to attend buddhism [] Unable to walk/stand [] Unable to read [] Unable to drive [] Unable to eat/drink [] Unable to sleep [] Unable to be with family [] Patient intubated [] Other: Summary 30min Time spent with patient
--- NOTE | 2025-03-11 12:55 | PC.NURSE ---
This nurse obtained orthostatic vital signs. Patient stated he was having some dizziness upon sitting up. Upon standing, patient stated there was some slight dizziness but it was slightly better than when sitting. This nurse ambulated patient around the hallway. Patient was unsteady on his feet and complained of dizziness, stating it was slightly better than before. Walking further, the patient stated he was feeling dizzy, but he started to slow down more and seemed to be slightly more unsteady on his feet.
--- NOTE | 2025-03-11 13:42 | P.PN_ITS ---
Subjective 2 Subjective: Admitted overnight. H&P and labs appreciated. Examination patient laying comfortably in bed. States still dizzy on and off getting aggravated on minimal ambulation though a lot better than yesterday. Denies being unsteady on feet. Denies any nausea, vomiting or abdominal pain. Vitals/I&O/Wt Last Vital Signs Temp 98.5 F 03/11/25 11:04 Pulse 94 03/11/25 12:58 Resp 15 03/11/25 11:04 BP 169/82 03/11/25 12:58 Pulse Ox 95 03/11/25 11:04 O2 Del Method Room Air 03/11/25 11:04 03/10/25 03/11/25 03/11/25 22:59 06:59 14:59 Intake Total 1000 / 1000 2000 / 3000 600 / 600 Output Total 300 / 300 Balance 1000 / 1000 1700 / 2700 600 / 600 Weight last 48 hrs Weight 86.999 kg Weight 85.275 kg Weight 88.451 kg Physical Exam 2 Narrative: General: No acute distress, AO x3, mild nystagmus present HEENT: PERRLA, pupils bilaterally equal and reactive Chest: Normal vesicular breath sounds, no added sounds, equal good air entry bilaterally CVS: S1-S2 regular, no murmurs, no tachycardia, no gallops, no rubs Abdomen: Soft, nontender, no organomegaly, bowel sounds present Neuro: No focal deficits, no facial deformity, AO x3, power 5/5 in all limbs Data 03/11/25 04:51 03/11/25 04:51 A&P Assessment and plan 1. Episodic peripheral vertigo: High concerns for BPPV. Will request Angeles's maneuver with physical therapy. Continue with telemetry. MRI brain to rule out posterior circulation stroke. Patient does have CKD and uncontrolled type 2 diabetes mellitus along with hypertension which puts him at a high risk for stroke. Out of bed to chair. Add meclizine 25 mg 3 times daily. Check orthostatic blood pressures 2. Hyponatremia: Resolved. 3. Hypertension: Goal blood pressure less than 140/90 mmHg with mean over 65. Continue with lisinopril at home dose. Discontinue hydrochlorothiazide as that can precipitate BPPV as well. Switch to amlodipine 10 mg oral daily. Uptitrate as for goal blood pressure. 4. PAD (peripheral artery disease): Patient on high dose of aspirin 325 mg daily and atorvastatin 20 mg 5. Peripheral neuropathy: Patient need adequate diabetes control And to follow-up as outpatient for further management 6. Type 2 diabetes mellitus: IA1c more than 10. Patient currently on OHA as an outpatient. Discussed with patient that if his A1c continues to remain more than 9 in 6 months he should speak with his PCP regarding transitioning to insulin. For now continue with insulin sliding scale. 7. CKD (chronic kidney disease): Patient might have CKD since the last value was in 2020 which was normal Patient having proteinuria Continue to monitor renal functions with intake and output monitoring Monitoring of electrolytes with correction accordingly Plan: VTE: Heparin twice daily Carb consistent cardiac Famotidine for PUD prophylaxis PDMP PDMP Reviewed: Not Reviewed Attestations 2 Medical Necessity Statement*: Requires further hospitalization for management of significant vertigo with concerns for fall as patient requires physical therapy evaluation, possible MRI brain to rule out posterior circulation stroke prior to discharge Diagnoses Episodic peripheral vertigo H81.399 Hyponatremia E87.1 Hypertension I10 Hypertension type: unspecified PAD (peripheral artery disease) I73.9 Peripheral neuropathy G62.9 Type 2 diabetes mellitus E11.9 CKD (chronic kidney disease) N18.9
--- NOTE | 2025-03-11 15:59 | P.DS_ITS ---
Discharge Providers Date of Admission: 03/10/25 21:58 Date of Discharge: March 11, 2025 Attending Provider at Admission: Karie Fields MD Attending Provider at Discharge: Anshu Brooks MD Primary Care Provider: Tierney Barcenas MD Diagnoses at Discharge Discharge Diagnosis 1. Episodic peripheral vertigo: 2. Hyponatremia: 3. Hypertension: 4. PAD (peripheral artery disease): 5. Peripheral neuropathy: 6. Type 2 diabetes mellitus: 7. CKD (chronic kidney disease): Reason for Visit Reason for Visit: N/V/D Brief History: Per HPI As per the previous retrospective notes and the patient Blayne Goldstein is a 64 year old male With past medical history of hypertension, diabetes with diabetic complications including neuropathy, diabetic retinopathy with early stages of cataract development came due to sensation of spinning of the room vertigo from the last 1 day with 1 episode of nausea and vomiting today.. The patient did not complain of any fever, recent sore throats, or any earaches or ear discharges. There was no history of chest pain, chest pressure, abdominal pain or any diarrhea or change in his urinary habits. He did not had any episodes of syncope or presyncope in the past. He used to have such vertigo episodes in the past as well. He further reported that he has diabetic ne uropathy and whenever he stands he feels some diaphoresis which could be related to dysautonomia? No history of orthopnea or PND. The patient did not report any past medical history of coronary disease or stroke however he is on regular aspirin 325 daily which I am not sure of the reason as from retrospective notes and could be peripheral artery disease ? No history of recent sick contacts or travels Rest of the review of system is unremarkable Hospital Course Hospital Course Patient was admitted overnight for further evaluation and management of dizziness/vertigo. He responded well to treatment and has vertigo stabilized. He worked well with physical therapy who recommended him to follow-up as an outpatient for vestibular disorder. During hospitalization he did not have any episode of falls. He was found to have elevated blood pressures for which his antihypertensives were adjusted. Hydrochlorothiazide has been discontinued with concerns for vestibular disorders. Amlodipine 10 mg daily, Coreg 6.25 mg twice daily has been added to his medication list. Dose of lisinopril has been increased to 40 mg oral daily. MRI was done which ruled out posterior circulation stroke. During hospitalization he was found to have uncontrolled type 2 diabetes mellitus with A1c of more than 10. He is advised to follow-up with his PCP for further changes in OHS versus an introduction of insulins. He has been discharged in hemodynamically stable condition with referral for physical therapy and with advised to follow-up with his PCP in 1 week. Physical Exam Narrative: General: No acute distress, AO x3, mild nystagmus present HEENT: PERRLA, pupils bilaterally equal and reactive Chest: Normal vesicular breath sounds, no added sounds, equal good air entry bilaterally CVS: S1-S2 regular, no murmurs, no tachycardia, no gallops, no rubs Abdomen: Soft, nontender, no organomegaly, bowel sounds present Neuro: No focal deficits, no facial deformity, AO x3, power 5/5 in all limbs Discharge Data Studies Completed and Pending Completed Studies During Hospitalization Category Date Time Status CT head wo con* [id number] Urgent Cat Scan 03/10/25 19:37 Completed MR head wo con* [id number] Routine MRI 03/11/25 09:40 Completed Pending at discharge Category Date Time Status Complete Blood Count w/Auto AM LABS Lab 03/12/25 04:00 Ordered Comprehensive Metabolic Panel AM LABS Lab 03/12/25 04:00 Ordered Folate Level AM LABS Lab 03/12/25 04:00 Ordered Lipid Profile w/VLDL Routine Lab 03/12/25 04:00 Ordered MAG [Magnesium] AM LABS Lab 03/12/25 04:00 Ordered MAG [Magnesium] AM LABS Lab 03/13/25 04:00 Ordered MAG [Magnesium] AM LABS Lab 03/14/25 04:00 Ordered Radiology Impressions Head CT 03/10/25 19:37 IMPRESSION: No acute intracranial abnormality. Head MRI 03/11/25 09:40 IMPRESSION: No acute infarct, intracranial bleed or intracranial mass. Laboratory Results WBC 8.63 10^3/uL (3.29-11.43) 03/11/25 04:51 RBC 4.18 10^6/uL (3.85-5.65) 03/11/25 04:51 Hgb 12.50 g/dL (11.27-16.99) 03/11/25 04:51 Hct 35.3 % (37-53) L 03/11/25 04:51 MCV 84.4 fl (82-101) 03/11/25 04:51 MCH 29.9 pg (27-33) 03/11/25 04:51 MCHC 35.4 g/dL (30-55) 03/11/25 04:51 RDW 11.8 % (12.1-15.1) L 03/11/25 04:51 Plt Count 193 10^3/cmm (157-399) 03/11/25 04:51 MPV 10.0 fL (7.4-10.4) 03/11/25 04:51 Neut % (Auto) 70.1 % 03/11/25 04:51 Lymph % (Auto) 21.1 % 03/11/25 04:51 [place] % (Auto) 6.6 % 03/11/25 04:51 Eos % (Auto) 1.4 % 03/11/25 04:51 Baso % (Auto) 0.3 % 03/11/25 04:51 Neut # (Auto) 6.05 10^3/uL (1.8-7.7) 03/11/25 04:51 Lymph # (Auto) 1.8 10^3/uL (0.8-4.8) 03/11/25 04:51 [place] # (Auto) 0.6 10^3/uL (0.2-0.9) 03/11/25 04:51 Eos # (Auto) 0.1 10^3/uL (0.0-0.8) 03/11/25 04:51 Baso # (Auto) 0.0 10^3/uL (0.0-0.1) 03/11/25 04:51 Nucleated RBC % (auto) 0 % 03/11/25 04:51 Nucleated RBCs # 0.0 /100WBC 03/11/25 04:51 Sodium 137 mmol/L (136-145) 03/11/25 04:51 Potassium 3.8 mmol/L (3.5-5.1) 03/11/25 04:51 Chloride 104 mmol/L (98-107) 03/11/25 04:51 Carbon Dioxide 22 mmol/L (22-29) 03/11/25 04:51 Anion Gap 14.8 (5-19) 03/11/25 04:51 BUN 23 mg/dL (8-23) 03/11/25 04:51 Creatinine 1.4 mg/dL (0.7-1.2) H 03/11/25 04:51 GFR Calculation 51.2 mL/min (90-130) L 03/11/25 04:51 Glucose 209 mg/dL (65-115) H 03/11/25 04:51 POC Glucose 353 mg/dL (70-110) H 03/11/25 11:04 Estimat Average Glucose 255 03/10/25 16:49 Hemoglobin A1c 10.5 % (4.0-6.0) H 03/10/25 16:49 Calculated Osmolality 294 mOsm/kg (285-295) 03/11/25 04:51 Calcium 8.3 mg/dL (8.5-10.5) L 03/11/25 04:51 Phosphorus 3.3 mg/dL (2.5-4.5) 03/10/25 16:49 Magnesium 2.0 mg/dL (1.7-2.3) 03/10/25 16:49 Iron 53 ug/dL (59-158) L 03/11/25 04:51 TIBC 223 mcg/dl 03/11/25 04:51 % Saturation 23.7 % (20-50) 03/11/25 04:51 Unsat Iron Binding 170 ug/dL (112-347) 03/11/25 04:51 Total Bilirubin 0.6 mg/dL (0.15-1.2) 03/11/25 04:51 AST 15 U/L (0-40) 03/11/25 04:51 ALT 24 U/L (0-41) 03/11/25 04:51 Alkaline Phosphatase 59 U/L (40-130) 03/11/25 04:51 Total Protein 6.1 g/dL (6.6-8.7) L D 03/11/25 04:51 Albumin 3.6 g/dL (3.5-5.2) 03/11/25 04:51 Globulin 2.5 g/dL (1.3-4.6) 03/11/25 04:51 Lipase 35 U/L (13-60) 03/10/25 16:49 Vitamin B12 872 pg/mL (232-1245) 03/11/25 04:51 TSH 0.90 uIU/mL (0.27-4.20) 03/10/25 16:49 Urine Color Yellow (Yellow) 03/10/25 18:49 Urine Appearance Clear (CLEAR) 03/10/25 18:49 Urine pH 7.0 (5-7) 03/10/25 18:49 Ur Specific [place] 1.029 (1.005-1.030) 03/10/25 18:49 Urine Protein 1+ (Negative) A 03/10/25 18:49 Urine Glucose (UA) 3+ (Normal) H 03/10/25 18:49 Urine Ketones 1+ (Negative) H 03/10/25 18:49 Urine Blood Negative (Negative) 03/10/25 18:49 Urine Nitrate Negative (Negative) 03/10/25 18:49 Urine Bilirubin Negative (Negative) 03/10/25 18:49 Urine Urobilinogen 0.2 mg/dL (Negative) 03/10/25 18:49 Ur Leukocyte Esterase Negative (Negative) 03/10/25 18:49 Urine RBC 0-2 /hpf (0-2) 03/10/25 18:49 Urine WBC 0-5 /hpf (0-5) 03/10/25 18:49 Ur Squamous Epith Cells 0-5 /hpf (0-5) 03/10/25 18:49 Amorphous Sediment Not Reportable 03/10/25 18:49 Urine Bacteria None seen /hpf (NONE) 03/10/25 18:49 Hyaline Casts 0-4 /lpf H 03/10/25 18:49 Serum Ketones Negative (Negative) 03/10/25 16:49 Vitals Last Vital Signs Temp 98.5 F 03/11/25 11:04 Pulse 94 03/11/25 12:58 Resp 15 03/11/25 11:04 BP 169/82 03/11/25 12:58 Pulse Ox 95 03/11/25 11:04 O2 Del Method Room Air 03/11/25 11:04 Discharge Plan Discharge Patient Disposition: Home Condition: Stable Prescriptions: New meclizine 25 mg Tablet 50 mg PO TID 7 Days Qty: 42 0RF amlodipine 10 mg Tablet 10 mg PO DAILY Qty: 30 0RF carvedilol [Coreg] 3.125 mg tablet 3.125 mg PO BID Qty: 60 0RF Rx Instructions: must administer with a meal/food Continued glipizide 10 mg tablet 10 mg PO DAILY sitagliptin 50 mg tablet 50 mg PO DAILY pantoprazole 40 mg tablet,delayed release (DR/EC) 40 mg PO BID 14 Days Qty: 28 0RF (DME) Diabetic Shoes 3 x insoles See Rx Instructions .Route .MEDSUPPLY Qty: 1 0RF Rx Instructions: As directed by [facility] atorvastatin 40 mg Tablet 20 mg PO BEDTIME aspirin 325 mg Tablet 325 mg PO DAILY magnesium 250 mg Tablet 250 mg PO DAILY loratadine 10 mg Tablet 10 mg PO DAILY [id number] oil 720-1,200 mg Capsule 2 cap PO DAILY polyethylene glycol 3350 [Miralax] 17 gram/dose Powder 17 g PO DAILY PRN (Reason: Constipation) potassium gluconate 595 mg (99 mg) Tablet 595 mg PO DAILY Changed lisinopril 40 mg Tablet 40 mg PO DAILY Qty: 10 0RF Discontinued hydrochlorothiazide 25 mg tablet 25 mg PO BID Qty: 60 0RF Discharge Order = DC NOW: Discharge Order (Routine); Ordered 03/11/25 Ordered By: Anshu Brooks Referrals: Tierney Barcenas MD [Primary Care Provider, Family Practice] Physical Therapy - [facility] [Provider Group] - 1-3 days Referral Note: vestibular disorder Patient Instructions: Opioid Safety, Patient Portal & [facility] Instructions Activity Restrictions/Additional Instructions: Check blood pressure daily at home maintain blood pressure diary. Goal blood pressure is between 100-140 systolic. Do not take your hydrochlorothiazide anymore. Dose of lisinopril has been increased to 40 mg daily, amlodipine 10 mg oral daily and Coreg 6.25 mg twice daily has been added to your medication list. Take meclizine 50 mg 3 times a day for next 5 days and after that as needed for dizziness. Follow-up with physical therapy as an outpatient for further evaluation and management of vestibular disorder Discharge Attestations Time Spent in Discharge Care*: greater than 30 min Specific Discharge Activities: educating patient, discussing with pcp/other providers, discussing with rifle case repairer/social workers/dc planners, documenting/other paperwork and evaluating patient/reviewing data Status at Discharge: Cognitive status at discharge: cognitively intact , Behavioral status at discharge: cooperative , Functional status at discharge: independent ambulation , Overall status at discharge: patient is progressing back to baseline Quality Metrics Clinical Quality Measures [ No reported AMI, CVA or VTE this stay] Coding Level of Care Code Acute Code for Chg Fwd Diagnoses Episodic peripheral vertigo H81.399 Hyponatremia E87.1 Hypertension I10 Hypertension type: unspecified PAD (peripheral artery disease) I73.9 Peripheral neuropathy G62.9 Type 2 diabetes mellitus E11.9 CKD (chronic kidney disease) N18.9
--- NOTE | 2025-03-11 16:44 | PC.NURSE ---
This nurse discussed discharge paperwork with patient. All questions were answered. IV line was removed. Patient dressed himself. Patient stated he would have to call a cab for a ride but he had that funds to cover it. This nurse told the patient he was welcome to stay and wait in the room until he had a ride available.
== END 2025-03-11 17:35 | disposition home or self-care (01) ==
LOC: ER 22:02 → MEDSURG 22:37
PROVIDERS: Physician Assistant; Admitting Provider Student in an Organized Health Care Education/Training Program; Emergency Provider Emergency Medicine; PCP Family Medicine; Visit Provider Student in an Organized Health Care Education/Training Program
DX: H81.399 Other peripheral vertigo, unspecified ear (principal); E87.1 Hypo-osmolality and hyponatremia; I73.9 Peripheral vascular disease, unspecified; G62.9 Polyneuropathy, unspecified; E11.22 Type 2 diabetes mellitus with diabetic chronic kidney disease; I12.9 Hypertensive chronic kidney disease with stage 1 through stage 4 chronic kidney disease, or unspecified chronic kidney disease; N18.9 Chronic kidney disease, unspecified; Z79.82 Long term (current) use of aspirin; K21.9 Gastro-esophageal reflux disease without esophagitis; Z87.891 Personal history of nicotine dependence
CPT/HCPCS: 36415; 36416; 70450; 70551; 80053; 81001; 82009; 82607; 82962; 83036; 83540; 83550; 83690; 83735; 84100; 84443; 85025; 93005; 96361; 96372; 96374; 96375; 97112; 97161; 97166; 99285; G0378; J0360; J1644; J1815; J2060; J2405; J2765; J3490; J7030; J7120; J8597; J9999

== ENCOUNTER → 2025-03-22 13:09 | Outpatient (BNVA) | payer OTHER, SELFPAY | PROVIDERS: PCP Family Medicine; Visit Provider Podiatrist Foot & Ankle Surgery | DX: E11.42 Type 2 diabetes mellitus with diabetic polyneuropathy (principal); L60.3 Nail dystrophy; E11.8 Type 2 diabetes mellitus with unspecified complications; G62.9 Polyneuropathy, unspecified; I73.9 Peripheral vascular disease, unspecified; M25.571 Pain in right ankle and joints of right foot; M25.572 Pain in left ankle and joints of left foot | CPT/HCPCS: 11721 ==

== ENCOUNTER 2025-04-12 12:08 | Outpatient (RCR) | payer OTHER, SELFPAY | END 2025-05-03 23:59 | disposition home or self-care (01) | LOC: SPT 12:08 | PROVIDERS: Visit Provider Family Medicine | DX: H81.399 Other peripheral vertigo, unspecified ear (principal) | CPT/HCPCS: 95992; 97161 ==